=== PATIENT | female | born 1965 | race Caucasian/White ===

== ENCOUNTER 2019-01-09 13:38 | Outpatient (CLI) | payer OTHER ==
--- NOTE | 2019-01-10 10:32 | MRI Report ---
Reason: PAIN IN UNSPECIFIED KNEE Procedure Date: 01/09/2019 Accession Number: [id number] / [id number] Procedure: MRI - Knee LT W/O CPT Code: FULL RESULT: EXAM: LEFT KNEE MRI WITHOUT CONTRAST EXAM DATE: 01/09/2019 03:03 PM. CLINICAL HISTORY: Left knee pain and clicking while walking. COMPARISON: None. TECHNIQUE: Multiplanar, multisequence T1-weighted and fluid-sensitive sequences of the knee without contrast. Other: None. FINDINGS: Bones: No fractures or subluxations. No marrow edema. No bone lesions. Articular Cartilage: Grade 2 chondromalacia at the lateral compartment. Medial Meniscus: The medial meniscus is intact. Lateral Meniscus: The lateral meniscus is intact. Cruciate Ligaments: The anterior and posterior cruciate ligaments are intact. Collateral Ligaments: The medial collateral and lateral collateral ligamentous structures are intact. Tendons: The quadriceps, patellar, semimembranosus, and popliteus tendons are unremarkable. Musculature: No edema or fatty atrophy. Other: Small joint effusion. 2 cm popliteal fossa cyst. No loose bodies. The medial and lateral retinacula are intact. Linear T2 hyperintensity through Hoffa's fat pad, likely a shear injury, subacute to chronic.. IMPRESSION: 1. No evidence of internal derangement. 2. Small joint effusion and popliteal fossa cyst. 3. Subacute to chronic shear injury of Hoffa's fat pad. RADIA
== END 2019-01-09 13:39 | disposition home or self-care (01) ==
LOC: DI 13:38
PROVIDERS: ATTEND Family Medicine
DX: M71.22 Synovial cyst of popliteal space [Baker], left knee (principal); M25.462 Effusion, left knee

== ENCOUNTER 2020-09-21 15:25 | Outpatient (CLI) | payer OTHER ==
--- NOTE | 2020-09-21 17:13 | MRI Report ---
PROCEDURE: Shoulder RT W/O INDICATIONS: RT SH SUPRASPINATUS TEAR TECHNIQUE: Noncontrast oblique coronal T2 fast spin echo with fat saturation, oblique sagittal T1 spin echo and T2 fast spin echo with fat saturation, axial T1 spin echo and T2 fast spin echo with fat saturation t hrough the shoulder. COMPARISON: None. FINDINGS: Image quality: Excellent. Rotator cuff: There is full-thickness perforation involving posterior fibers of distal supraspinatus approximately 1.3 cm from its insertion on humeral head with up to 4 mm medial retraction of torn ten don fibers and a fluid-filled gap measures 5 mm in AP dimension. Tendinosis and low-grade partial-thi ckness tear involving anterior to mid fibers of distal supraspinatus is seen. Distal infraspinatus te ndinosis and low-grade articular surface partial-thickness tear is also noted. Distal subscapularis t endinosis and low-grade intrasubstance partial thickness tear is seen. Mild supraspinatus muscle atro phy is noted on sagittal images. Bones and bursae: No bone marrow contusions or fractures. Moderate acromioclavicular joint osteoarth ritic changes are seen with downward osteophyte formation depressing on musculotendinous junction of supraspinatus. The acromion demonstrates conventional anatomy, without an os acromiale. Small amount of subacromial subdeltoid bursal fluid is present. Capsule and soft tissues: In the absence of intra-articular contrast, the labrum and glenohumeral li gaments appear intact. The long head of the biceps tendinosis and low-grade intrasubstance partial t hickness tear is seen. The rotator interval appears normal, without fibrosis. The coracohumeral lig ament is normal in thickness. IMPRESSION: 1. Full-thickness perforation involving posterior fibers of distal supraspinatus approximately 1.3 cm from its insertion on humeral head with up to 4 mm medial retraction of torn tendon fibers as above. Tendinosis and low-grade articular surface partial-thickness tear involving rest of the distal supra spinatus as well as distal infraspinatus. Distal subscapularis tendinosis and low-grade intrasubstanc e partial thickness tear. Mild supraspinatus muscle atrophy. 2. Moderate acromioclavicular joint osteoarthritis. 3. No evidence of focal labral tear. 4. Tendinosis and low-grade intrasubstance partial thickness tear involving proximal intra-articular portion of long head of biceps. Reviewed by: Stanton Barney MD on 09/21/2020 5:12 PM PST Approved by: Stanton Barney MD on 09/21/2020 5:12 PM PST Station ID: [id number]
== END 2020-09-21 15:26 | disposition home or self-care (01) ==
LOC: DI 15:25
PROVIDERS: ATTEND Orthopaedic Surgery
DX: S46.021A Laceration of muscle(s) and tendon(s) of the rotator cuff of right shoulder, initial encounter (principal); M19.011 Primary osteoarthritis, right shoulder; S46.221A Laceration of muscle, fascia and tendon of other parts of biceps, right arm, initial encounter

== ENCOUNTER 2020-10-14 14:12 | Outpatient (CLI) | payer OTHER ==
[~2020-10-14 14:12] MED LIST: BUFFERED LIDOCAINE 10 ML SYRINGE ONE; ROPIVACAINE 0.5% PF 20 ML AMPULE ONE; TRIAMCINOLONE 40 MG/ML VIAL ONE
[2020-10-14] MEDS ORDERED: BUFFERED LIDOCAINE 10 ML SYRINGE IU ONE (15:30)
[2020-10-14] MEDS ORDERED: ROPIVACAINE 0.5% PF 20 ML AMPULE IU ONE (15:31)
[2020-10-14] MEDS ORDERED: TRIAMCINOLONE 40 MG/ML VIAL IM ONE (15:35)
--- NOTE | 2020-10-14 17:19 | Ultrasound Report ---
PROCEDURE: Injection Single Tendon INDICATIONS: RT SHLDR BICIPITAL TENDINITIS TECHNIQUE: The indications, alternatives, benefits, risks, and complications of the procedure were explained to the patient. Written informed consent was obtained and placed in the chart. The patient was placed in an appropriate position on the fluoroscopy table, and a site was chosen for percutaneous access un hong ultrasound guidance. Local anesthetic was administered using a 1% lidocaine solution. A hypoder dulce or spinal needle was then used to access the symptomatic joint. Intra-articular location of the needle tip was confirmed by real time ultrasound imaging, followed by steroid administration. The ne edle was then withdrawn, and a bandage applied to the puncture site. FINDINGS: Joint injected: Right bicipital tendon sheath Medications injected: 3 mL of 40 mg/mL Kenalog and 0.5% Ropivacaine mixture. (1 mL of Kenalog and 2 mL of ropivacaine) Patient's pain before injection: 2 of 10. Patient's pain after injection: 2 of 10. Complications: None. IMPRESSION: Successful ultrasound guided administration of steroid and anaesthetic solution into the right bicipital tendon sheath. Reviewed by: Sterling Green MD on 10/14/2020 5:18 PM PST Approved by: Sterling Green MD on 10/14/2020 5:18 PM PST Station ID: [id number]
== END 2020-10-14 14:13 | disposition home or self-care (01) ==
LOC: DI 14:12
PROVIDERS: ATTEND Orthopaedic Surgery
DX: M75.21 Bicipital tendinitis, right shoulder (principal); M75.101 Unspecified rotator cuff tear or rupture of right shoulder, not specified as traumatic
CPT/HCPCS: 20550

== ENCOUNTER 2023-11-19 11:07 | Outpatient (CLI) | payer OTHER | END 2023-11-19 23:59 | disposition left against medical advice (07) | LOC: EMS 11:07 | DX: S01.01XA Laceration without foreign body of scalp, initial encounter (principal); W11.XXXA Fall on and from ladder, initial encounter; Y92.89 Other specified places as the place of occurrence of the external cause; Y99.0 Civilian activity done for income or pay ==

== ENCOUNTER 2023-11-19 16:46 | Emergency (ER) | payer OTHER ==
[2023-11-19 17:01] VITALS: BP 139/69; O2SAT 100
[2023-11-19] MEDS: TETANUS/DIPHTHERIA/PERTUSSIS 0.5 ML SYRINGE IM ONE (17:58)
--- NOTE | 2023-11-19 18:25 | ED Physician Documentation ---
PD HPI HEAD INJURY - Stated complaint Stated Complaint: FALL - Chief complaint Chief Complaint: Trauma Hd/Nk - Additional information Additional information: . Patient was at work she was stepping off the second step of a stepstool when she excellently lost her balance fell back and hit the back of her head on a shelf on her way to the ground. She had no loss of consciousness she is not any blood thinners she denies any neck pain or tenderness she has full range of motion to her neck and head. There is some bleeding to the posterior scalp that is well-controlled. She has no nausea or vomiting no amnesia of the event no seizure-like activity. PD PAST MEDICAL HISTORY - Past Medical History Past Medical History: No Endocrine/Autoimmune: HyPOthyroidism - Past Surgical History Past Surgical History: Yes Ortho: Carpal Tunnel surgery - Present Medications Home Medications: Ambulatory Orders Medication Instructions Recorded Confirmed Thyroid,Pork [Cookson Thyroid] 60 mg PO DAILY 11/19/23 11/19/23 Venlafaxine [Effexor] 37.5 mg PO DAILY 11/19/23 11/19/23 buPROPion HCL [Wellbutrin Xl] 300 mg PO DAILY 11/19/23 11/19/23 hydroCHLOROthiazide [Hydrodiuril] 25 mg PO DAILY 11/19/23 11/19/23 - Allergies Allergies/Adverse Reactions: Allergies Allergy/AdvReac Type Severity Reaction Status Date / Time Sulfa (Sulfonamide Allergy Anaphylaxis Verified 11/19/23 17:00 Antibiotics) - Social History Does the pt smoke?: No Smoking Status: Never smoker Does the pt drink ETOH?: No - Immunizations Immunizations are current?: No Immunizations: TDAP >10years/unknown PD ED PE NORMAL - Vitals Vital signs reviewed: Yes - General General: Alert and oriented X 3, No acute distress, Well developed/nourished - HEENT HEENT: PERRL, EOMI, Moist mucous membranes, Other (1cm laceration to posterior scalp) - Neck Neck: Supple, no meningeal sign, No bony TTP, C-Spine cleared by NEXUS criteria - Cardiac Cardiac: RRR, No murmur, No gallop, Strong equal pulses - Respiratory Respiratory: No respiratory distress - Abdomen Abdomen: Normal bowel sounds - Back Back: No spinal TTP - Derm Derm: Normal color, Warm and dry - Neuro Neuro: Alert and oriented X 3, signal tower director 2-12 intact, No motor deficit, Normal speech Eye Opening: Spontaneous Motor: Obeys Commands Verbal: Oriented GCS Score: 15 - Psych Psych: Normal mood Results - Vitals Vitals: Vital Signs - 24 hr 11/19/23 16:54 Temperature 36.6 C Heart Rate 77 Respiratory 16 Rate Blood Pressure 139/69 H O2 Saturation 100 Oxygen O2 Source Room air Procedures - Laceration (location) scalp laceration Length in cm: 1 Wound type: Linear, Superficial, Into subcut fat, Clean Wound preparation: Irrigated copiously NS Skin layer closure: Dermabond (one knot of hair apposition) Other: Patient tolerated well, No complications, Tetanus booster given PD Medical Decision Making - ED course ED course: 58-year-old female presents emergency department for head injury. She had no loss of consciousness no nausea or vomiting she is very neurologically intact so I have no concerns of intracranial hemorrhage or other acute intracranial emergencies at this time. Her tetanus shot was updated, laceration is fairly superficial but due to the oozing bleeding we decided to do 1 hair apposition not with Dermabond and bleeding completely resolved and wound edges appear to be well-approximated. Before hair apposition technique was performed wound was thoroughly irrigated with normal saline. They were taught how to manage this at home when they are able to remove the knot and given strict ER return precautions. All questions answered safe for discharge. Departure - Departure Disposition: 01 Home, Self Care Clinical Impression: Scalp laceration Qualifiers: Encounter type: initial encounter Qualified Code(s): S01.01XA - Laceration without foreign body of scalp, initial encounter Instructions: ED Laceration Small Superf No Sutr Comments: Thank you for trusting us with your care. We have irrigated and cleansed the wound on the back of your head and we have placed a superficial layer of glue to help with healing and recovery to the laceration. We also tied a very small knot to help the wound edges come together better which will help with wound healing. If after 7 to 10 days the knot and glue are still there you can cut that little piece of hair out it is a very very small strand of hair so you will not notice it missing. Please watch for signs and symptoms of infection which include fevers, chills, drainage that is yellow/green, body aches or pain that is getting worse instead of better over the next few days. If you start to develop any of these please follow-up with your primary care provider or come back into the emergency department if you are not able to get in with your primary care provider anytime soon. We have updated your tetanus shot as well while you are here. If you start to notice any confusion, nausea vomiting, increase sleepiness or any other neurological concerns please come back to the emergency department for reevaluation. Wishing you a speedy recovery. Forms: PCP List Discharge Date/Time: 11/19/23 18:36
[2023-11-19] MEDS: ACETAMINOPHEN 325 MG TABLET PO STA (18:36)
== END 2023-11-19 18:36 | disposition home or self-care (01) ==
LOC: ED 16:46
DX: S01.01XA Laceration without foreign body of scalp, initial encounter (principal); W19.XXXA Unspecified fall, initial encounter; Z23 Encounter for immunization
CPT/HCPCS: 1040M; 12001; 90471; 90715; 99282; A9270